=== PATIENT | male | born 1970 | race Caucasian/White ===

== ENCOUNTER 2024-05-27 14:08 | Inpatient (IN) ==
[2024-05-27] MEDS: 0.9 % SODIUM CHLORIDE 1,000 ML IV ONE ×3 (14:56→19:27)
[2024-05-27 15:43] LABS: ALT/SGPT 25 U/L (<40); AST/SGOT 23 U/L (<40); Albumin 4.6 gm/dL (3.2-5.2); Albumin/Globulin Ratio 1.2 (1.0-2.3); Alkaline Phosphatase 174 U/L (39-117); Basophils # (Auto) 0.06 K/mcL (0.00-0.30); Basophils % (Auto) 0.2 % (0.0-2.0); Bilirubin,Total 0.8 mg/dL (0.1-1.0); Blood Urea Nitrogen 27 mg/dL (6-20); Calcium 9.9 mg/dL (8.6-10.4); Carbon Dioxide 7 mmol/L (22-30); Chloride 94 mmol/L (96-108); Eosinophils # (Auto) 0.07 K/mcL (0.00-0.70); Eosinophils % (Auto) 0.2 % (0.0-7.0); Globulin 3.8 gm/dL (2.2-3.7); Glomerular Filtration Rate 75; Glucose 664 mg/dL (70-105); Hematocrit 47.9 % (40.1-51.0); Hemoglobin 15.7 g/dL (13.7-17.5); Lymphocytes # (Auto) 2.03 K/mcL (1.50-4.80); Lymphocytes % (Auto) 6.2 % (15.5-49.0); Mean Cell Volume 88.5 fL (80.0-100.0); Mean Corpuscular HGB Conc 32.8 g/dL (31.0-36.0); Mean Platelet Volume 11.5 fL (8.8-12.5); Monocytes # (Auto) 1.56 K/mcL (0.10-0.90); Monocytes % (Auto) 4.8 % (1.0-12.0); Platelet Count 337 K/mcL (140-440); Potassium 4.6 mmol/L (3.3-5.1); RBC 5.41 M/mcL (4.63-6.08); Red Cell Distribution Width 12.6 % (11.5-14.5); Sodium 134 mmol/L (133-145); WBC 32.6 K/mcL (4.5-11.0)
[2024-05-27 15:47] LABS: Beta Hydroxybutyrate 7.58 mmol/L (<0.27)
[2024-05-27] MEDS: INSULIN REGULAR, HUMAN 1 UNIT/0.01 ML UNIT IV ONE (16:00)
[2024-05-27] MEDS: INSULIN REGULAR, HUMAN 50 UNIT in 0.9 % SODIUM CHLORIDE 99.5 ML IV SCH ×3 (16:18→22:17)
[2024-05-27 16:56] LABS: ABG Methemoglobin 0.4 % (0.4-1.5); Total Hemoglobin 16.5 gm/Dl (13.5-16.5); VBG Base Excess -20 (-2-3); VBG HCO3 7.1 mmol/L (24.0-28.0); VBG Oxygen Saturation 93.5 % (40.0-70.0); VBG PCO2 22.5 mmHg (41.0-51.0); VBG PH 7.12 U (7.32-7.42); VBG PO2 124.7 mmHg (25.0-40.0); VBG Total CO2 7.8 mmol/L (25.0-29.0)
[2024-05-27 18:08] LABS: Appearance,Urine Clear (Clear); Bacteria,Urine 0 /hpf (0); Bilirubin,Urine Negative (Negative); Color,Urine Yellow; Glucose,Urine (UA) 500 mg/dL (Negative); Ketones,Urine >=160 mg/dL (Negative); Leukocyte Esterase,Urine Negative /uL (Negative); Nitrate,Urine Negative (Negative); Protein,Urine Negative (Negative); Urine Blood Negative ery/mcL (Negative); Urine RBC 0 /hpf (0-3); Urine Squamous Epithelial Cell 0 /hpf (0-4); Urine WBC 0 /hpf (0-4); Urobilinogen,Urine Normal
[2024-05-27 19:02] LABS: Basophils # (Auto) 0.04 K/mcL (0.00-0.30); Basophils % (Auto) 0.1 % (0.0-2.0); Blood Urea Nitrogen 29 mg/dL (6-20); Calcium 8.7 mg/dL (8.6-10.4); Carbon Dioxide 8 mmol/L (22-30); Chloride 104 mmol/L (96-108); Eosinophils # (Auto) 0.04 K/mcL (0.00-0.70); Eosinophils % (Auto) 0.1 % (0.0-7.0); Glomerular Filtration Rate 68; Glucose 413 mg/dL (70-105); Hematocrit 42.6 % (40.1-51.0); Lymphocytes # (Auto) 2.41 K/mcL (1.50-4.80); Lymphocytes % (Auto) 7.7 % (15.5-49.0); Mean Cell Volume 88.8 fL (80.0-100.0); Mean Corpuscular HGB Conc 32.9 g/dL (31.0-36.0); Mean Platelet Volume 10.8 fL (8.8-12.5); Monocytes # (Auto) 1.45 K/mcL (0.10-0.90); Monocytes % (Auto) 4.6 % (1.0-12.0); Neutrophils % (Auto) 84.5 % (38.0-78.0); Platelet Count 291 K/mcL (140-440); Potassium 4.1 mmol/L (3.3-5.1); Red Cell Distribution Width 12.7 % (11.5-14.5); Sodium 138 mmol/L (133-145); WBC 31.4 K/mcL (4.5-11.0)
[2024-05-27] MEDS ORDERED: DEXTROSE 50% 50 ML VIAL IV PRN (19:56)
[2024-05-27] MEDS ORDERED: DEXTROSE 31 GM ORAL.SUSP PO PRN (19:56)
[2024-05-27] MEDS: INSULIN GLARGINE, HUMAN 1 UNIT/0.01 ML SQ ONE ×2 (20:20→21:50)
[2024-05-27] MEDS ORDERED: POTASSIUM CHLORIDE 10 MEQ in 0.45 % SODIUM CHLORIDE 1,000 ML IV SCH (20:30)
[2024-05-27] MEDS ORDERED: MAGNESIUM HYDROXIDE 30 ML ORAL.SUSP PO PRN (21:28)
[2024-05-27] MEDS ORDERED: SENNOSIDES 1 TABLET PO PRN (21:28)
[2024-05-27] MEDS: POTASSIUM CHLORIDE 40 MEQ/20 ML VIAL IV ONE (21:46)
[2024-05-27] MEDS: POTASSIUM CHLORIDE 10 MEQ in 0.45 % SODIUM CHLORIDE 1,000 ML IV SCH ×2 (21:48→21:49)
[2024-05-27] MEDS: 0.9 % SODIUM CHLORIDE 10 ML SYRINGE IV SCH (21:48)
[2024-05-27] MEDS: INSULIN GLARGINE, HUMAN 1 UNIT/0.01 ML SQ SCH (21:51)
[2024-05-27] MEDS: INSULIN LISPRO 1 UNIT/0.01 ML UNIT SQ SCH (21:51)
[2024-05-27] MEDS: DEXTROSE 5%-1/2NS W/20MEQ KCL 1,000 ML IV SCH (22:58)
[2024-05-27 23:09] LABS: Blood Urea Nitrogen 27 mg/dL (6-20); Calcium 8.5 mg/dL (8.6-10.4); Carbon Dioxide 13 mmol/L (22-30); Chloride 108 mmol/L (96-108); Glomerular Filtration Rate 84; Glucose 219 mg/dL (70-105); Potassium 4.2 mmol/L (3.3-5.1); Sodium 136 mmol/L (133-145)
[2024-05-27] MEDS: INSULIN REGULAR, HUMAN 1 UNIT/0.01 ML UNIT ONE (23:22)
[2024-05-28 01:10] LABS: Blood Urea Nitrogen 26 mg/dL (6-20); Calcium 8.3 mg/dL (8.6-10.4); Carbon Dioxide 15 mmol/L (22-30); Chloride 110 mmol/L (96-108); Glomerular Filtration Rate 96; Glucose 191 mg/dL (70-105); Potassium 3.8 mmol/L (3.3-5.1); Sodium 136 mmol/L (133-145)
[2024-05-28] MEDS: INSULIN REGULAR, HUMAN 1 UNIT/0.01 ML UNIT ONE (05:03)
[2024-05-28] MEDS: DEXTROSE 50% 50 ML SYRINGE IV PRN (05:12)
[2024-05-28 06:49] LABS: ALT/SGPT 18 U/L (<40); AST/SGOT 34 U/L (<40); Albumin 3.6 gm/dL (3.2-5.2); Albumin/Globulin Ratio 1.3 (1.0-2.3); Alkaline Phosphatase 117 U/L (39-117); Bilirubin,Direct 0.3 mg/dL (<0.3); Bilirubin,Total 0.7 mg/dL (0.1-1.0); Blood Urea Nitrogen 23 mg/dL (6-20); Calcium 8.3 mg/dL (8.6-10.4); Carbon Dioxide 16 mmol/L (22-30); Chloride 111 mmol/L (96-108); Globulin 2.7 gm/dL (2.2-3.7); Glomerular Filtration Rate 96; Glucose 162 mg/dL (70-105); Lactate Dehydrogenase 200 U/L (135-225); Phosphorous 0.8 mg/dL (2.5-4.5); Potassium 3.9 mmol/L (3.3-5.1); Sodium 137 mmol/L (133-145); Triglycerides 60 mg/dL (<150); Uric Acid 5.2 mg/dL (2.5-8.0)
[2024-05-28] MEDS: INSULIN GLARGINE, HUMAN 1 UNIT/0.01 ML SQ SCH (08:29)
[2024-05-28] MEDS: NEUTRA PHOS 1 PACKET PO SCH (08:30)
[2024-05-28] MEDS: ENOXAPARIN 40 MG/0.4 ML SYRINGE SQ SCH (08:36)
[2024-05-28] MEDS: POTASSIUM PHOSPHATE 40 MEQ in DEXTROSE 5% IN WATER 500 ML IV ONE ×2 (08:57→18:55)
[2024-05-28 09:17] LABS: Basophils # (Auto) 0.06 K/mcL (0.00-0.30); Basophils % (Auto) 0.2 % (0.0-2.0); Eosinophils # (Auto) 0.01 K/mcL (0.00-0.70); Eosinophils % (Auto) 0 % (0.0-7.0); Hematocrit 39.5 % (40.1-51.0); Hemoglobin 12.9 g/dL (13.7-17.5); Lymphocytes # (Auto) 1.65 K/mcL (1.50-4.80); Lymphocytes % (Auto) 6.4 % (15.5-49.0); Mean Cell Volume 89.4 fL (80.0-100.0); Mean Corpuscular HGB Conc 32.7 g/dL (31.0-36.0); Mean Platelet Volume 11.4 fL (8.8-12.5); Monocytes # (Auto) 1.35 K/mcL (0.10-0.90); Monocytes % (Auto) 5.3 % (1.0-12.0); Neutrophils % (Auto) 86.7 % (38.0-78.0); Platelet Count 267 K/mcL (140-440); RBC 4.42 M/mcL (4.63-6.08); Red Cell Distribution Width 13.1 % (11.5-14.5); WBC 25.6 K/mcL (4.5-11.0)
[2024-05-28] MEDS: POTASSIUM CHLORIDE 20 MEQ TABLET PO ONE (09:54)
[2024-05-28 10:33] LABS: ABG Methemoglobin 0.3 % (0.4-1.5); VBG Base Excess -6 (-2-3); VBG HCO3 17.2 mmol/L (24.0-28.0); VBG Oxygen Saturation 93.5 % (40.0-70.0); VBG PCO2 27.5 mmHg (41.0-51.0); VBG PH 7.41 U (7.32-7.42); VBG PO2 98.5 mmHg (25.0-40.0)
[2024-05-28 10:58] LABS: Blood Urea Nitrogen 19 mg/dL (6-20); Calcium 8.2 mg/dL (8.6-10.4); Carbon Dioxide 17 mmol/L (22-30); Chloride 109 mmol/L (96-108); Glomerular Filtration Rate 101; Glucose 196 mg/dL (70-105); Potassium 4.1 mmol/L (3.3-5.1); Sodium 135 mmol/L (133-145)
[2024-05-28 11:51] LABS: Beta Hydroxybutyrate 0.09 mmol/L (<0.27)
[2024-05-28 16:14] LABS: Blood Urea Nitrogen 15 mg/dL (6-20); Calcium 8.4 mg/dL (8.6-10.4); Carbon Dioxide 17 mmol/L (22-30); Chloride 110 mmol/L (96-108); Glomerular Filtration Rate 101; Glucose 134 mg/dL (70-105); Potassium 4.1 mmol/L (3.3-5.1); Sodium 138 mmol/L (133-145)
[2024-05-28] MEDS: SODIUM BICARBONATE 50 MEQ/50 ML VIAL IV ONE (17:57)
[2024-05-28 18:22] LABS: Blood Urea Nitrogen 14 mg/dL (6-20); Calcium 7.9 mg/dL (8.6-10.4); Carbon Dioxide 17 mmol/L (22-30); Chloride 110 mmol/L (96-108); Glomerular Filtration Rate 106; Glucose 175 mg/dL (70-105); Sodium 137 mmol/L (133-145)
[2024-05-28] MEDS: POTASSIUM PHOSPHATE 66 MEQ/15 ML VIAL IV ONE (19:01)
[2024-05-28] MEDS: PREGABALIN 150 MG CAPSULE PO SCH (21:13)
[2024-05-28] MEDS: FISH OIL 1,000 MG CAPSULE PO SCH (21:13)
[2024-05-28 23:24] LABS: Blood Urea Nitrogen 11 mg/dL (6-20); Calcium 7.6 mg/dL (8.6-10.4); Carbon Dioxide 19 mmol/L (22-30); Chloride 108 mmol/L (96-108); Glomerular Filtration Rate 106; Glucose 189 mg/dL (70-105); Potassium 4.2 mmol/L (3.3-5.1); Sodium 137 mmol/L (133-145)
[2024-05-29] MEDS: SODIUM BICARBONATE 50 MEQ/50 ML VIAL IV ONE (00:40)
[2024-05-29 03:14] LABS: Blood Urea Nitrogen 9 mg/dL (6-20); Calcium 7.8 mg/dL (8.6-10.4); Carbon Dioxide 24 mmol/L (22-30); Chloride 109 mmol/L (96-108); Glomerular Filtration Rate 113; Glucose 140 mg/dL (70-105); Potassium 3.5 mmol/L (3.3-5.1); Sodium 141 mmol/L (133-145)
[2024-05-29] MEDS: POTASSIUM CHLORIDE 20 MEQ PACKET PO PRN (03:46)
[2024-05-29 06:28] LABS: Basophils # (Auto) 0.01 K/mcL (0.00-0.30); Basophils % (Auto) 0.1 % (0.0-2.0); Eosinophils % (Auto) 0.9 % (0.0-7.0); Hematocrit 35.5 % (40.1-51.0); Hemoglobin 11.8 g/dL (13.7-17.5); Lymphocytes # (Auto) 1.99 K/mcL (1.50-4.80); Lymphocytes % (Auto) 17.9 % (15.5-49.0); Mean Cell Volume 87.4 fL (80.0-100.0); Mean Corpuscular HGB Conc 33.2 g/dL (31.0-36.0); Mean Platelet Volume 10.8 fL (8.8-12.5); Monocytes # (Auto) 0.63 K/mcL (0.10-0.90); Monocytes % (Auto) 5.7 % (1.0-12.0); Neutrophils % (Auto) 75.2 % (38.0-78.0); Platelet Count 170 K/mcL (140-440); RBC 4.06 M/mcL (4.63-6.08); Red Cell Distribution Width 13.1 % (11.5-14.5); WBC 11.1 K/mcL (4.5-11.0)
[2024-05-29 06:46] LABS: ALT/SGPT 32 U/L (<40); AST/SGOT 63 U/L (<40); Albumin 3.1 gm/dL (3.2-5.2); Albumin/Globulin Ratio 1.2 (1.0-2.3); Alkaline Phosphatase 100 U/L (39-117); Bilirubin,Direct 0.4 mg/dL (<0.3); Blood Urea Nitrogen 8 mg/dL (6-20); Carbon Dioxide 21 mmol/L (22-30); Chloride 108 mmol/L (96-108); Globulin 2.5 gm/dL (2.2-3.7); Glomerular Filtration Rate 113; Glucose 183 mg/dL (70-105); Lactate Dehydrogenase 230 U/L (135-225); Phosphorous 2.7 mg/dL (2.5-4.5); Sodium 139 mmol/L (133-145); Triglycerides 145 mg/dL (<150)
[2024-05-29] MEDS: OMEPRAZOLE 20 MG CAPSULE PO SCH (08:45)
[2024-05-29] MEDS: ASPIRIN 81 MG TAB.CHEW PO SCH (08:45)
[2024-05-29] MEDS: ESCITALOPRAM 10 MG TABLET PO SCH (08:45)
[2024-05-29] MEDS: LORATADINE 10 MG TABLET PO SCH (08:46)
[2024-05-29 10:50] LABS: Blood Urea Nitrogen 6 mg/dL (6-20); Calcium 8.5 mg/dL (8.6-10.4); Carbon Dioxide 22 mmol/L (22-30); Chloride 107 mmol/L (96-108); Glomerular Filtration Rate 113; Glucose 211 mg/dL (70-105); Potassium 4.1 mmol/L (3.3-5.1); Sodium 138 mmol/L (133-145)
[2024-05-29] MEDS ORDERED: POTASSIUM CHLORIDE 10 MEQ in 0.45 % SODIUM CHLORIDE 1,000 ML IV PRN (11:11)
[2024-05-29] MEDS ORDERED: SUBCUTANEOUS INSULIN PUMP SUB-Q SCH (14:00)
[2024-05-29] MEDS ORDERED: [UNRECOGNIZED DRUG - SUPPLY] SUB-Q SCH (14:00)
[2024-05-29 14:30] LABS: Blood Urea Nitrogen 6 mg/dL (6-20); Calcium 8.7 mg/dL (8.6-10.4); Carbon Dioxide 21 mmol/L (22-30); Chloride 108 mmol/L (96-108); Glomerular Filtration Rate 113; Glucose 137 mg/dL (70-105); Potassium 3.8 mmol/L (3.3-5.1); Sodium 138 mmol/L (133-145)
[2024-05-29] MEDS: FAMOTIDINE 20 MG TABLET PO SCH ×2 (18:29→20:59)
[2024-05-30 07:07] LABS: ALT/SGPT 39 U/L (<40); AST/SGOT 59 U/L (<40); Albumin 3.5 gm/dL (3.2-5.2); Albumin/Globulin Ratio 1.1 (1.0-2.3); Alkaline Phosphatase 122 U/L (39-117); Bilirubin,Direct 0.3 mg/dL (<0.3); Bilirubin,Total 0.9 mg/dL (0.1-1.0); Blood Urea Nitrogen 11 mg/dL (6-20); Calcium 9.1 mg/dL (8.6-10.4); Carbon Dioxide 23 mmol/L (22-30); Chloride 104 mmol/L (96-108); Globulin 3.2 gm/dL (2.2-3.7); Glomerular Filtration Rate 113; Glucose 127 mg/dL (70-105); Lactate Dehydrogenase 215 U/L (135-225); Phosphorous 4.2 mg/dL (2.5-4.5); Potassium 3.9 mmol/L (3.3-5.1); Sodium 138 mmol/L (133-145); Triglycerides 179 mg/dL (<150); Uric Acid 1.9 mg/dL (2.5-8.0)
[2024-05-30 07:12] LABS: Basophils # (Auto) 0.03 K/mcL (0.00-0.30); Basophils % (Auto) 0.4 % (0.0-2.0); Eosinophils # (Auto) 0.27 K/mcL (0.00-0.70); Eosinophils % (Auto) 3.9 % (0.0-7.0); Hematocrit 42.6 % (40.1-51.0); Hemoglobin 14.4 g/dL (13.7-17.5); Lymphocytes # (Auto) 1.43 K/mcL (1.50-4.80); Lymphocytes % (Auto) 20.8 % (15.5-49.0); Mean Cell Volume 87.1 fL (80.0-100.0); Mean Corpuscular HGB Conc 33.8 g/dL (31.0-36.0); Monocytes % (Auto) 8.7 % (1.0-12.0); Neutrophils % (Auto) 66.1 % (38.0-78.0); Platelet Count 193 K/mcL (140-440); RBC 4.89 M/mcL (4.63-6.08); Red Cell Distribution Width 12.9 % (11.5-14.5); WBC 6.9 K/mcL (4.5-11.0)
== END 2024-05-30 11:02 | disposition home or self-care (01) | DRG 639 ==
LOC: ED 14:08 → ICU 21:09
PROVIDERS: ADMIT Student in an Organized Health Care Education/Training Program; ATTEND Student in an Organized Health Care Education/Training Program